=== PATIENT | female | born 1955 | race Caucasian/White ===

== ENCOUNTER 2022-09-24 09:18 | Day surgery (SDC) | payer OTHER ==
[~2022-09-24] VITALS: Ht 157.5 cm; Wt 73.5 kg
[2022-09-24] MEDS ORDERED: BUPIVACAINE /PF 0.25% 30 ML VIAL INJ ONE (12:21)
[2022-09-24] MEDS ORDERED: ONDANSETRON HCL 4 MG/2 ML VIAL ONE (12:21)
[2022-09-24] MEDS ORDERED: SUCCINYLCHOLINE CHLORIDE 20 MG/ML(QUELICIN) ONE (12:21)
[2022-09-24] MEDS ORDERED: MORPHINE SULFATE 10MG/10ML PF AMP ONE (12:21)
[2022-09-24] MEDS ORDERED: ROCURONIUM BROMIDE 10 MG/ML (ZEMURON) ONE (12:21)
[2022-09-24] MEDS ORDERED: KETOROLAC TROMETHAMINE 30 MG VIAL ONE (12:21)
[2022-09-24] MEDS ORDERED: DEXAMETHASONE SOD PHOSPHATE 4 MG/ML VIAL ONE (12:21)
[2022-09-24] MEDS ORDERED: PROPOFOL 200MG/ 20ML VIAL (DIPRIVAN) IV ONE (12:21)
[2022-09-24] MEDS ORDERED: METOCLOPRAMIDE HCL 10 MG/2 ML VIAL ONE (12:21)
[2022-09-24] MEDS ORDERED: fentaNYL CITRATE/PF 100 MCG/2 ML AMP ONE (12:21)
[2022-09-24] MEDS ORDERED: NS 1000 ML IV.SOLN IV ONE (12:21)
[2022-09-24] MEDS ORDERED: NS IRRIG SOLN 1000 ML IR ONE (12:21)
[2022-09-24] MEDS ORDERED: ISOFLURANE 15 MIN GAS INH ONE (12:21)
[2022-09-24] MEDS ORDERED: ONDANSETRON HCL 4 MG/2 ML VIAL IVP PRN (13:00)
[2022-09-24] MEDS ORDERED: MORPHINE 4 MG INJ. 4 MG/ML VIAL IVP PRN ×3 (13:00)
[2022-09-24] MEDS ORDERED: D5/0.45 NS 1,000 ML IV SCH (13:45)
[2022-09-24] MEDS ORDERED: HYDROcodone/ACETAMIN 5-325 MG TAB (NORCO/ VICODIN) PO PRN ×2 (13:45)
[2022-09-24 15:44] VITALS: BP_SYST 152
== END 2022-09-24 16:15 | disposition home or self-care (01) ==
LOC: SDS 09:18 → SMU 09:19 → SDS 16:15
PROVIDERS: ATTEND Colon & Rectal Surgery
DX: K80.10 Calculus of gallbladder with chronic cholecystitis without obstruction (principal)
CPT/HCPCS: 74300; 76000; 87081; 88304; C1727; C1758; J0330; J1100; J1885; J2274; J2405; J2704; J2765; J3010; J3490; J7030; Q9967